=== PATIENT | male | born 1945 | race Caucasian/White ===

== ENCOUNTER 2018-06-21 16:10 | Outpatient (RCR) | payer MEDICARE, OTHER, SELFPAY | END 2018-07-05 23:59 | disposition home or self-care (01) | LOC: CR 16:10 | PROVIDERS: PCP Family Medicine; Visit Provider Family Medicine | DX: I48.91 Unspecified atrial fibrillation (principal); I10 Essential (primary) hypertension; Z51.89 Encounter for other specified aftercare ==

== ENCOUNTER 2018-07-06 04:19 | Outpatient (RCR) | payer MEDICARE, OTHER, SELFPAY | END 2018-08-04 23:59 | disposition home or self-care (01) | LOC: CR 04:19 | PROVIDERS: PCP Family Medicine; Visit Provider Family Medicine | DX: I48.91 Unspecified atrial fibrillation (principal); I10 Essential (primary) hypertension; Z51.89 Encounter for other specified aftercare ==

== ENCOUNTER 2018-09-04 13:00 | Outpatient (RCR) | payer MEDICARE, OTHER, SELFPAY | END 2018-09-04 23:59 | disposition home or self-care (01) | LOC: CR 13:00 | PROVIDERS: PCP Family Medicine; Visit Provider Family Medicine | DX: I48.91 Unspecified atrial fibrillation (principal); I10 Essential (primary) hypertension; Z51.89 Encounter for other specified aftercare; Z95.1 Presence of aortocoronary bypass graft; Z95.2 Presence of prosthetic heart valve | CPT/HCPCS: S9472 ==

== ENCOUNTER 2018-10-04 09:00 | Outpatient (RCR) | payer MEDICARE, OTHER, SELFPAY | END 2018-10-05 23:59 | disposition home or self-care (01) | LOC: CR 09:00 | PROVIDERS: PCP Family Medicine; Visit Provider Family Medicine | DX: Z95.2 Presence of prosthetic heart valve (principal); Z95.1 Presence of aortocoronary bypass graft; I48.91 Unspecified atrial fibrillation; I10 Essential (primary) hypertension; Z51.89 Encounter for other specified aftercare | CPT/HCPCS: S9472 ==

== ENCOUNTER 2018-11-01 09:00 | Outpatient (RCR) | payer MEDICARE, OTHER, SELFPAY | END 2018-11-02 23:59 | disposition home or self-care (01) | LOC: CR 09:00 | PROVIDERS: PCP Family Medicine; Visit Provider Family Medicine | DX: Z95.2 Presence of prosthetic heart valve (principal); Z95.1 Presence of aortocoronary bypass graft; I48.91 Unspecified atrial fibrillation; I10 Essential (primary) hypertension; Z51.89 Encounter for other specified aftercare | CPT/HCPCS: S9472 ==

== ENCOUNTER 2018-11-20 11:40 | Outpatient (RCR) | payer MEDICARE, OTHER, SELFPAY | END 2018-12-03 23:59 | disposition home or self-care (01) | LOC: CR 11:40 | PROVIDERS: PCP Family Medicine; Visit Provider Family Medicine | DX: Z95.2 Presence of prosthetic heart valve (principal); Z95.1 Presence of aortocoronary bypass graft; I48.91 Unspecified atrial fibrillation; I10 Essential (primary) hypertension; Z51.89 Encounter for other specified aftercare | CPT/HCPCS: S9472 ==